=== PATIENT | female | born 2000 | race Caucasian/White ===

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

== ENCOUNTER → 2020-05-22 | Outpatient (CLI) | payer OTHER ==
[2020-05-22 11:26] LABS: Appearance,Urine Cloudy (Clear); Bilirubin,Urine Negative (Negative); Blood,Urine Negative (Negative); Color,Urine Yellow; Glucose,Urine (UA) Negative (Negative); Ketones,Urine Negative (Negative); Leukocyte Esterase,Urine Moderate (Negative); Mucus,Urine Moderate /hpf; Nitrite,Urine Negative (Negative); PH, Urine 6.5 (5.0-8.0); Protein,Urine Trace (Negative); RBC,Urine 2 /hpf (0-5); Specific Gravity,Urine 1.027 (1.001-1.035); Squamous Epithelial Cell,Urine 4 /hpf (0-4); WBC,Urine 3 /hpf (0-5)
[2020-05-22 15:05] LABS: HCT 35.1 % (37.2-46.3); HGB 11.8 g/dL (12.0-15.0); MCH 29.4 pg (27.0-32.0); MCHC 33.6 g/dL (32.0-37.0); MCV 87.3 fL (80.0-97.0); Mean Platelet Volume 9.2 fL (9.5-12.2); Platelet Count 221 X 10*3/uL (140-440); RBC 4.02 X 10*6/uL (4.10-5.20); RDW 12.2 % (11.5-14.5); WBC 6.81 X 10*3/uL (4.50-10.00)
[2020-05-22 22:34] LABS: HIV 2 AB Non-Reactive (Non-Reactive); HIV AB P24 Non-Reactive (Non-Reactive); HIV P24 AG Non-Reactive (Non-Reactive)
[2020-05-23 16:45] LABS: Hepatitis B Surface Antigen Non-Reactive (Non-Reactive)
== END | disposition home or self-care (01) ==
LOC: LABWHC1 10:20
PROVIDERS: ATTEND Physician Assistant
DX: Z34.01 Encounter for supervision of normal first pregnancy, first trimester (principal); Z3A.00 Weeks of gestation of pregnancy not specified
CPT/HCPCS: 36415; 81001; 85027; 86762; 86780; 86850; 86900; 86901; 87086; 87340; 87390

== ENCOUNTER 2020-11-15 18:27 | Outpatient (CLI) | payer OTHER ==
[2020-11-15 19:26] VITALS: BP 111/68; PULSE 72; RESP 18; TEMP 98.3
--- NOTE | 2020-12-19 12:22 | P.MSEPDOC ---
Presenting Problems - Arrival Data Date of Arrival on Unit: 11/15/20 Time of Arrival on Unit: 18:27 Mode of Transport: Ambulatory - Complaint OB-Reason for Admission/Chief Complaint: Rule Out SROM Comment: Pt presents to triage with c/o SROM around 1200 today Medical History - Information : 1 Para: 0 Term: 0 : 0 Abortions: Spontaneous or Elective: 0 Number of Living Children: 0 - Gestational Age Gestational Age by SARAH (wks/days): 37 Weeks and 0 Days Review of Systems - Review of Systems Constitutional: No problems Breast: No problems ENT: No problems Cardiovascular: No problems Respiratory: No problems Gastrointestinal: No problems Genitourinary: No problems Musculoskeletal: No problems Neurological: No problems Skin: No problems Vital Signs - Temperature Temperature: 98.3 F Temperature Source: Temporal Artery Scan - Pulse Pulse Oximetery Pulse Rate: 72 Pulse Assessment Method: Automatic Cuff - Respirations Respiratory Rate: 18 Oxygen Delivery Method: Room Air O2 Sat by Pulse Oximetry: 100 - Blood Pressure Right Arm Blood Pressure: 111/68 Blood Pressure Mean: 82 Blood Pressure Source: Automatic Cuff Medical Screen Scoring - Cervical Exam Dilation (cm): 2.5 Effacement (%): 80 Station: -1 Membranes: Intact - Uterine Contractions Frequency From (mins): 2 Frequency To (mins): 9 Duration From (seconds): 40 Duration To (seconds): 120 Intensity: Mild Resting: Soft to palpation - Assessment - Baby A Baseline FHR: 115 Heart Rate - NICHD Category: Category I (Normal) NST: Reactive Physician Notification - Physician Notified Physician Notified Date: 11/15/20 Physician Notified Time: 19:12 Physician: Chuckie Willingham New Order Received: Yes - Notification Comment Comment: Dr. Willingham notified by Malgorzata Garnica RN of pt's arrival and c/o possible SROM with some leaking since, amniosure negative, reactive NST, just discharge noted with cervical exam, 2.5/80/-2 orders to discharge home, pt has appt for the with Dr. Steward this week, reviewed s/s of labor with pt Maternal Triage Index - Maternal Triage Index Presenting for scheduled procedure w/no complaint: No - Stat/Priority 1 Stat Priority 1: No - Urgent/Priority 2 Urgent Priority 2: No - Prompt/Priority 3 Prompt Priority 3: No - Non-Urgent/Priority 4 Non-Urgent Priority 4: Yes Criteria Met for Priority 4: >37 weeks with early labor signs and c/o SROM/leaking Disposition - Disposition OB Disposition: Discharge to home Discharge Date: 11/15/20 Discharge Time: 19:15 I agree with the RN Medical Screening Exam: Yes Physician's MSE Comment: I have neither seen nor examined the patient. Case reviewed; plan agreed upon as documented in EMR&OBIX.: Yes Diagnosis: RELATED CONDITIONS, UNSPECIFIED, THIRD TRIMESTER
== END 2020-11-15 19:15 | disposition home or self-care (01) ==
LOC: FBPOP 18:27
PROVIDERS: ATTEND Obstetrics & Gynecology
DX: O26.93 Pregnancy related conditions, unspecified, third trimester (principal); Z3A.37 37 weeks gestation of pregnancy
CPT/HCPCS: 59025; 84112; G0463; 99213

== ENCOUNTER 2020-11-21 19:50 | Outpatient (CLI) | payer OTHER ==
[2020-11-21 21:26] VITALS: BP 117/74; PULSE 85; RESP 16; TEMP 96.3
--- NOTE | 2020-11-30 09:39 | P.MSEPDOC ---
Presenting Problems - Arrival Data Date of Arrival on Unit: 11/21/20 Time of Arrival on Unit: 19:50 Mode of Transport: Ambulatory - Complaint OB-Reason for Admission/Chief Complaint: Possible Onset of Labor Comment: Pt presents to triage with c/o contractions. Pt states she has been na for the last several weeks but that contractions increased in frequency and intensity today and are approx 5-6 minutes apart Medical History - Information : 1 Para: 0 Term: 0 : 0 Abortions: Spontaneous or Elective: 0 Number of Living Children: 0 - Gestational Age Gestational Age by SARAH (wks/days): 37 Weeks and 6 Days Review of Systems - Review of Systems Constitutional: No problems Breast: No problems ENT: No problems Cardiovascular: No problems Respiratory: No problems Gastrointestinal: No problems Genitourinary: No problems Musculoskeletal: No problems Neurological: No problems Skin: No problems Vital Signs - Temperature Temperature: 96.3 F Temperature Source: Temporal Artery Scan - Pulse Pulse Oximetery Pulse Rate: 85 Pulse Assessment Method: Automatic Cuff - Respirations Respiratory Rate: 16 Oxygen Delivery Method: Room Air O2 Sat by Pulse Oximetry: 98 - Blood Pressure Right Arm Blood Pressure: 117/74 Blood Pressure Mean: 88 Blood Pressure Source: Automatic Cuff Medical Screen Scoring - Cervical Exam Dilation (cm): 2 Effacement (%): 70 Station: -1 Membranes: Intact - Uterine Contractions Frequency From (mins): 3 Frequency To (mins): 5 Duration From (seconds): 40 Duration To (seconds): 100 Intensity: Mild Resting: Soft to palpation - Assessment - Baby A Baseline FHR: 1 Heart Rate - NICHD Category: Category I (Normal) NST: Reactive Physician Notification - Physician Notified Physician Notified Date: 11/21/20 Physician Notified Time: 20:40 Physician: Stephanie Steward New Order Received: Yes - Notification Comment Comment: Dr. Steward called dept for report on pt status. Update provided re: c/o contx. for the last several weeks which have increased in frequency and intensity today, SVE, status, contx pattern, vital signs, burning pain in lower abdomen and clean catch urine sample collected. Orders received to recheck cervix in 1 hour and d/c pt home if no cervical change has been made. Orders received to increase oral fluids over weekend, pelvic rest and keep scheduled appt with Dr. Steward on Saturday 11/25. Dr. Steward states. urinalysis does not need to be sent. Maternal Triage Index - Maternal Triage Index Presenting for scheduled procedure w/no complaint: No - Stat/Priority 1 Stat Priority 1: No - Urgent/Priority 2 Urgent Priority 2: No - Prompt/Priority 3 Prompt Priority 3: No - Non-Urgent/Priority 4 Non-Urgent Priority 4: Yes Criteria Met for Priority 4: >37 weeks with early labor signs Disposition - Disposition OB Disposition: Physician follow up in office, Discharge to home Discharge Date: 11/21/20 Discharge Time: 21:10 I agree with the RN Medical Screening Exam: Yes Case reviewed; plan agreed upon as documented in EMR&OBIX.: Yes Comments: Patient was neither seen nor examined by me Diagnosis: FALSE LABOR AT OR AFTER 37 COMPLETED WEEKS OF GESTATION
== END 2020-11-21 21:10 | disposition home or self-care (01) ==
LOC: FBPOP 19:50
PROVIDERS: ATTEND Obstetrics & Gynecology
DX: O47.1 False labor at or after 37 completed weeks of gestation (principal); Z3A.37 37 weeks gestation of pregnancy
CPT/HCPCS: 59025; G0463; 99213

== ENCOUNTER 2020-12-04 14:53 | Outpatient (CLI) | payer OTHER ==
[2020-12-04 16:36] VITALS: BP 127/72; PULSE 90; RESP 16; TEMP 97.9
--- NOTE | 2020-12-16 13:07 | P.MSEPDOC ---
Presenting Problems - Arrival Data Date of Arrival on Unit: 12/04/20 Time of Arrival on Unit: 15:00 Mode of Transport: Ambulatory - Complaint OB-Reason for Admission/Chief Complaint: Rule Out SROM Medical History - Information : 1 Para: 0 Term: 0 : 0 Abortions: Spontaneous or Elective: 0 Number of Living Children: 0 - Gestational Age Gestational Age by SARAH (wks/days): 39 Weeks and 5 Days Review of Systems - Review of Systems Constitutional: No problems Breast: No problems ENT: No problems Cardiovascular: No problems Respiratory: No problems Gastrointestinal: No problems Genitourinary: No problems Musculoskeletal: No problems Neurological: No problems Skin: No problems Vital Signs - Temperature Temperature: 97.9 F Temperature Source: Oral - Pulse Apical Pulse Rate: 90 Pulse Assessment Method: Automatic Cuff - Respirations Respiratory Rate: 16 Oxygen Delivery Method: Room Air O2 Sat by Pulse Oximetry: 100 - Blood Pressure Right Arm Blood Pressure: 127/72 Blood Pressure Mean: 90 Blood Pressure Source: Automatic Cuff Medical Screen Scoring - Cervical Exam Dilation (cm): 3 Effacement (%): 70 Station: -2 Membranes: Intact - Uterine Contractions Intensity: Mild - Assessment - Baby A Baseline FHR: 125 Heart Rate - NICHD Category: Category I (Normal) NST: Reactive Physician Notification - Physician Notified Physician Notified Date: 12/04/20 Physician Notified Time: 16:20 Physician: Stephanie Steward Order Received: Yes (discharge home with instructions) Maternal Triage Index - Maternal Triage Index Presenting for scheduled procedure w/no complaint: No - Stat/Priority 1 Stat Priority 1: No - Urgent/Priority 2 Urgent Priority 2: No - Prompt/Priority 3 Prompt Priority 3: No - Non-Urgent/Priority 4 Non-Urgent Priority 4: Yes Criteria Met for Priority 4: may discharge home after rechecking pt. amnisure neg. reactive nst. Disposition - Disposition OB Disposition: Physician follow up in office, Discharge to home, Written follow up instructions reviewed Discharge Date: 12/04/20 Discharge Time: 16:30 I agree with the RN Medical Screening Exam: Yes Case reviewed; plan agreed upon as documented in EMR&OBIX.: Yes Comments: Patient was neither seen nor examined by me Diagnosis: FALSE LABOR AT OR AFTER 37 COMPLETED WEEKS OF GESTATION
== END 2020-12-04 16:30 | disposition home or self-care (01) ==
LOC: FBPOP 14:53
PROVIDERS: ATTEND Obstetrics & Gynecology
DX: O47.1 False labor at or after 37 completed weeks of gestation (principal); Z3A.39 39 weeks gestation of pregnancy
CPT/HCPCS: 59025; 84112; G0463; 99213

== ENCOUNTER 2020-12-05 21:13 | Inpatient (IN) | payer OTHER ==
[2020-12-05] MEDS ORDERED: OXYTOCIN 10 UNIT/ML 1 ML VIAL IM PRN (21:48)
[2020-12-05] MEDS ORDERED: LIDOCAINE 0.5% (PF) 5 MG/ML (50 ML SDV) SQ PRN (21:48)
[2020-12-05] MEDS ORDERED: TERBUTALINE 1 MG/ML VIAL SQ PRN (21:48)
[2020-12-05] MEDS ORDERED: METHYLERGONOVINE 0.2 MG/ML 1 ML AMP IM PRN (21:48)
[2020-12-05] MEDS ORDERED: CARBOPROST TROMETHAMINE 250 MCG/ML 1 ML AMP IM PRN (21:48)
[2020-12-05] MEDS ORDERED: PENICILLIN G POTASSIUM 5,000,000 UNIT in DEXTROSE 5% IN WATER 100 ML IVPB ONE ×2 (22:00)
[2020-12-05] MEDS: LACTATED RINGERS 1,000 ML IV SCH (23:04)
[2020-12-05 23:10] LABS: Basophils % (A) 0 %; Eosinophils # (A) 0.1 k/uL (0-0.7); Eosinophils % (A) 1 %; HCT 33.6 % (34.0-46.0); HGB 11.4 gm/dL (11.4-16.0); Lymphocytes # (A) 1.5 k/uL (1.0-4.8); Lymphocytes % (A) 16 %; MCH 29.3 pg (25.0-35.0); MCHC 33.8 g/dL (31.0-37.0); MCV 86.9 fL (80.0-100.0); Mean Platelet Volume 7.8; Monocytes # (A) 0.5 k/uL (0-1.0); Monocytes % (A) 5 %; Neutrophils # (A) 7.1 k/uL (1.3-7.7); Neutrophils % (A) 76 %; Platelet Count 245 k/uL (150-450); RBC 3.87 m/uL (3.80-5.40); RDW 13.6 % (11.5-15.5); WBC 9.4 k/uL (3.8-10.6)
[2020-12-06] MEDS ORDERED: PENICILLIN G POTASSIUM 2,500,000 UNIT in DEXTROSE 5% IN WATER 100 ML IVPB SCH ×2 (04:00)
[2020-12-06] MEDS ORDERED: OXYTOCIN 30 UNITS/500 ML NS 30 UNIT in SALINE 1 500ML.BAG IV SCH (06:00)
[2020-12-06] MEDS: LACTATED RINGERS 1,000 ML IV SCH ×2 (06:54→10:38)
[2020-12-06] MEDS: PENICILLIN G POTASSIUM 2,500,000 UNIT in DEXTROSE 5% IN WATER 100 ML IVPB SCH ×4 (06:57→11:03)
--- NOTE | 2020-12-06 08:48 | P.HPOB ---
History of Present Illness H&P Date: 12/06/20 Chief Complaint: My water broke last night This is a 20-year-old white female 1 para 0 EDC 12/12/2020 at 40 weeks gestation who presented with spontaneous amniorrhexis yesterday. This was verified by testing at the bedside. She was admitted last night, penicillin G prophylaxis started. Past medical history is significant for anxiety and depression. Past surgical history is negative. Current medications vitamins daily. ALLERGIES none known. Family history significant for heart disease, dementia, diabetes. Social history patient is , is present at the bedside. She is currently unemployed. She denies tobacco alcohol or drug use. history is significant for blood type A positive, rubella status immune. Urine culture, hepatitis B surface antigen, HIV testing, gonorrhea and chlamydia cultures, group B strep cultures all negative. One-hour Glucola 74. On exam patient is 5 foot 10 inches, 175 pounds, blood pressure 125/73. Vital signs are stable and she is afebrile. General physical exam is within normal limits. Cervix is 6 cm dilated, 90% effaced, -1 station, vertex presentation. heart rate is consistent with reactive NST. Uterine contractions are occurring approximately every 3-5 minutes apart, of mild to moderate intensity. She is declining the option for pain medication. Impression: 40 week intrauterine . Early labor. All signs currently reassuring. Plan: Continue close maternal and surveillance. Continue oxytocin per hospital protocol. Continue penicillin G prophylaxis per protocol. Anticipate normal spontaneous vaginal delivery. Review of Systems Constitutional: Reports as per HPI Past Medical History Past Medical History: No Reported History History of Any Multi-Drug Resistant Organisms: None Reported Past Surgical History: No Surgical Hx Reported Past Anesthesia/Blood Transfusion Reactions: No Reported Reaction Past Psychological History: No Psychological Hx Reported Smoking Status: Never smoker Past Alcohol Use History: None Reported Past Drug Use History: None Reported - Past Family History Father Family Medical History: No Reported History Mother Family Medical History: No Reported History Medications and Allergies Home Medications Medication Instructions Recorded Confirmed Type Pnv No.95/Ferrous Fum/Folic AC 1 each PO DAILY 11/15/20 12/05/20 History [ Multivitamin Tablet] Allergies Allergy/AdvReac Type Severity Reaction Status Date / Time No Known Allergies Allergy Verified 12/05/20 21:21 Exam Vital Signs Temp Pulse Resp BP Pulse Ox 12/05/20 23:30 97.0 F L 75 18 125/73 99 Intake and Output 12/05/20 12/06/20 12/06/20 22:59 06:59 14:59 Other: # Voids 1 2 Weight 79.379 kg 79.379 kg See dictation under HPI please Results Result Diagrams: 12/05/20 22:25 Abnormal Lab Results - Last 24 Hours (Table) 12/05/20 Range/Units 22:25 Hct 33.6 L (34.0-46.0) % Assessment and Plan Assessment: 40 week intrauterine , early active labor. All signs reassuring. Plan: Continue penicillin G prophylaxis for history of spontaneous amniorrhexis last night. Continue oxytocin per hospital protocol. Continue close maternal and surveillance. Analgesic options reviewed with the patient, currently declined. Anticipate normal spontaneous vaginal delivery. Time with Patient: Less than 30
[2020-12-06] MEDS ORDERED: BUTORPHANOL 1 MG/ML 1 ML VIAL IV PRN (09:00)
[2020-12-06] MEDS ORDERED: SODIUM CHLORIDE 0.9% 100 ML BAG ONE (10:14)
[2020-12-06] MEDS ORDERED: ROPIVACAINE 5MG/ML 20ML VIAL ONE (10:14)
[2020-12-06] MEDS ORDERED: fentaNYL (PF) 50 MCG/ML 5 ML AMP ONE (10:14)
[2020-12-06] MEDS ORDERED: diphenhydrAMINE 50 MG CAP PO PRN (13:15)
[2020-12-06] MEDS ORDERED: ACETAMINOPHEN TAB 325 MG TAB PO PRN (13:15)
[2020-12-06] MEDS ORDERED: ZOLPIDEM 5 MG TAB PO PRN (13:15)
[2020-12-06] MEDS ORDERED: HYDROCORTISONE 2.5% RECTAL CREAM 30 GM TUBE RECTAL PRN (13:15)
[2020-12-06] MEDS ORDERED: LANOLIN CREAM 5 GM TUBE TOPICAL PRN (13:15)
[2020-12-06] MEDS ORDERED: SIMETHICONE 80 MG CHEWABLE PO PRN (13:15)
[2020-12-06] MEDS ORDERED: BENZOCAINE/MENTHOL SPRAY 1 GM/SPRAY AEROSOL TOPICAL PRN (13:15)
[2020-12-06] MEDS ORDERED: diphenhydrAMINE 50 MG/ML 1 ML VIAL IVP PRN ×2 (13:15)
[2020-12-06] MEDS ORDERED: diphenhydrAMINE ELIXIR 25 MG/10 ML CUP PO PRN (13:15)
[2020-12-06] MEDS ORDERED: diphenhydrAMINE 25 MG CAP PO PRN (13:15)
--- NOTE | 2020-12-06 13:15 | P.PROBDLV ---
Vaginal Delivery Note - . Vaginal Delivery Note: This is a 20-year-old female 1 para 0 EDC 12/06/2020 at 40 weeks gestation. Patient presented last night with spontaneous amniorrhexis which occurred at home, clear fluid. [place] strep cultures were negative. She was treated with penicillin G and received 4 or 5 doses through the course of labor. Oxytocin was started this morning and titrated as per protocol. Epidural was placed per her request. heart tones were reassuring throughout first and second stages of labor. Patient became completely dilated at 1240 hrs. and began the second stage of labor at that time. She pushed quite successfully in the dorsal lithotomy position. Perineal body was prepped and draped in usual sterile fashion. Infant's head delivered aspirin anterior and he restituted accordingly at 1251 hrs. There was a nuchal cord 1 that was reduced. The left or anterior shoulder was delivered from underneath the pubic symphysis at which time the oropharynx, nasopharynx, and external nares were bulb suctioned on the perineal body. Patient was officially delivered of a liveborn male at 1252 hrs. Umbilical cord was doubly clamped and ligated, he was handed to waiting nurses for evaluation where scores of 8 and 9 at one and 5 minutes respectively were given. The placenta delivered spontaneously, but active management, at 1254 hrs. It was inspected and noted to be intact with trivascular cord. There was no unusual odor noted. At this time inspection of the cervix, vagina, perineum, periurethral, and perirectal areas was performed. There was a small first- degree perineal laceration easily repaired in the usual fashion using repeat suture. Uterus is massaged. Total estimated blood loss 250 mL's. Patient is requesting circumcision for her son. He weighs 3715 g or 8 lbs. 3 oz.
[2020-12-06] MEDS: IBUPROFEN 600 MG TAB PO PRN ×2 (14:28→19:28)
[2020-12-07 05:59] VITALS: TEMP 98.2
[2020-12-07 08:05] VITALS: BP 110/76; PULSE 91; RESP 14
[2020-12-07] MEDS: IBUPROFEN 600 MG TAB PO PRN (08:10)
--- NOTE | 2020-12-07 09:00 | P.DS ---
Providers Date of admission: 12/05/20 21:50 Expected date of discharge: 12/07/20 Attending physician: Stephanie Steward Primary care physician: Stated None - Discharge Diagnosis(es) (1) Term Current Visit: Yes Status: Acute (2) SROM (spontaneous rupture of membranes) Current Visit: Yes Status: Acute (3) Status post vaginal delivery Current Visit: Yes Status: Acute (4) Obstetric vaginal laceration with first degree perineal laceration Current Visit: Yes Status: Acute Hospital Course: This is a 20-year-old G1 now P1 status post normal spontaneous vaginal delivery. Patient receiving routine care without complication. Patient was admitted to labor and delivery on 12/05 with complaints of spontaneous rupture of membranes at home clear in nature. Patient was admitted group beta strep cultures were negative, antibiotics were begun secondary to length of time since rupture of membranes. Patient did progress through labor eventually requesting epidural for pain control. heart tones were noted to be reassuring throughout the labor process. Patient progressed to complete began pushing and had a normal spontaneous vaginal delivery of a viable male infant at 1252 on 12/06. Patient is doing well . is currently being transferred to [facility]. Senior Facilities Manager is in to speak with the parents. Patient is ambulating and voiding without difficulty. She is tolerating a regular diet without nausea or vomiting. She states her pain is well-controlled. Her lochia is moderate. She is breast-feeding and is requesting a breast pump prescription. Patient Condition at Discharge: Good Plan - Discharge Summary New Discharge Prescriptions: No Action Pnv No.95/Ferrous Fum/Folic AC [ Multivitamin Tablet] 1 each PO DAILY Discharge Medication List Pnv No.95/Ferrous Fum/Folic AC [ Multivitamin Tablet] 1 each PO DAILY 11/15/20 [History] Follow up Appointment(s)/Referral(s): Stephanie Steward MD [STAFF PHYSICIAN] - 6 Weeks Patient Instructions/Handouts: Vaginal Delivery (GEN), Vaginal Delivery (DC) Discharge Disposition: HOME SELF-CARE
[2020-12-07] MEDS: SENNOSIDES-DOCUSATE SODIUM 1 EACH TAB PO SCH ×2 (09:18→09:20)
== END 2020-12-07 12:45 | disposition home or self-care (01) | DRG 807 ==
LOC: FBPOP 21:13 → 4FBP 21:50
PROVIDERS: ADMIT Obstetrics & Gynecology; ATTEND Obstetrics & Gynecology
PROC: 10E0XZZ Delivery of Products of Conception, External Approach (ICD-10-PCS; principal; 2020-12-06)
PROC: 0HQ9XZZ Repair Perineum Skin, External Approach (ICD-10-PCS; 2020-12-06)
DX: O69.81X0 Labor and delivery complicated by cord around neck, without compression, not applicable or unspecified (principal); Z37.0 Single live birth; O70.0 First degree perineal laceration during delivery; Z3A.40 40 weeks gestation of pregnancy; Z56.0 Unemployment, unspecified; Z83.3 Family history of diabetes mellitus
CPT/HCPCS: 59025; 84112; 85025; 86850; 86900; 86901; 99213

== ENCOUNTER 2022-02-25 18:30 | Observation (INO) | payer OTHER ==
[2022-02-25 19:16] VITALS: RESP 16
[2022-02-25 20:02] LABS: Basophils % (A) 1 %; Eosinophils # (A) 0.1 k/uL (0-0.7); Eosinophils % (A) 2 %; HCT 38.1 % (34.0-46.0); HGB 13.2 gm/dL (11.4-16.0); Lymphocytes # (A) 1.9 k/uL (1.0-4.8); Lymphocytes % (A) 36 %; MCH 29.9 pg (25.0-35.0); MCHC 34.7 g/dL (31.0-37.0); Mean Platelet Volume 7.5; Monocytes # (A) 0.3 k/uL (0-1.0); Monocytes % (A) 6 %; Neutrophils # (A) 2.7 k/uL (1.3-7.7); Neutrophils % (A) 53 %; Platelet Count 222 k/uL (150-450); RBC 4.43 m/uL (3.80-5.40); RDW 12.4 % (11.5-15.5); WBC 5.2 k/uL (3.8-10.6)
[2022-02-25 20:32] LABS: Appearance,Urine Clear (Clear); Bilirubin,Urine Negative (Negative); Blood,Urine Negative (Negative); Color,Urine Light Yellow; Glucose,Urine (UA) Negative (Negative); Ketones,Urine Negative (Negative); Leukocyte Esterase,Urine Negative (Negative); Nitrite,Urine Negative (Negative); PH, Urine 7.5 (5.0-8.0); Protein,Urine Negative (Negative); Specific Gravity,Urine 1.019 (1.001-1.035); Urobilinogen,Urine <2.0 mg/dL (<2.0)
[2022-02-25 20:34] LABS: ALT 13 U/L (4-34); AST 17 U/L (14-36); African American GFR (CKD) >90 (>60 ml/min/1.73 sqM); Albumin 4.6 g/dL (3.5-5.0); Alcohol <10 mg/dL; Alkaline Phosphatase 45 U/L (38-126); Anion Gap 8 mmol/L; Blood Urea Nitrogen 14 mg/dL (7-17); Calcium 8.8 mg/dL (8.4-10.2); Carbon Dioxide 24 mmol/L (22-30); Chloride 106 mmol/L (98-107); Glucose 98 mg/dL (74-99); Lipase 216 U/L (23-300); Magnesium 1.9 mg/dL (1.6-2.3); Non-African American GFR(CKD) >90 (>60 ml/min/1.73 sqM); Potassium 4.1 mmol/L (3.5-5.1); Sodium 138 mmol/L (137-145); Total Bilirubin 0.4 mg/dL (0.2-1.3); Total Protein 7.1 g/dL (6.3-8.2)
--- NOTE | 2022-02-25 21:11 | XR ---
EXAMINATION TYPE: XR chest 2V DATE OF EXAM: 02/25/2022 COMPARISON: 09/06/2017 HISTORY: Numbness TECHNIQUE: FINDINGS: Heart and mediastinum are normal. Lungs are clear. Diaphragm is normal. Bony thorax appears normal. IMPRESSION: Normal chest. No change.
--- NOTE | 2022-02-25 21:17 | ED ---
General Adult HPI - General Chief complaint: Neuro Symptoms/Deficit Stated complaint: R. Sided Numbness Time Seen by Provider: 02/25/22 19:18 Source: patient Mode of arrival: ambulatory Limitations: no limitations - History of Present Illness Initial comments: This is a 21-year-old female with a past medical history presents emergency department for right hand and arm intermittent numbness. The patient stated that approximately 10:30 this morning she was at a store when she went to reach for something and had a sharp pain in the medial aspect of her right hand that shot of her arm which then cause numbness in the upper extremity. The patient then reported intermittent numbness in the right side of the face as well as tingling in the right toes. The patient also stated that she had some sharp pinpoint pain on the right side of the head as well as then the left side of the head later throughout the day. The patient did not note any slurring, dysphagia or facial droop. The patient was able to ambulate throughout the emergency department and did wait approximately 8 hours prior to arrival for evaluation. The patient on evaluation stated that she continued subjective numbness to the right upper extremity as well as the right side of the face. The patient denied any acute pain however and denied any trauma. The patient denied any li ghtheadedness or dizziness. The patient does have a history of migraines in which she sees spots and has pain posterior to her orbits. The patient stated that this was different than her previous migraines. The patient denied any other acute pain or complaints at this time. - Related Data Home Medications Medication Instructions Recorded Confirmed Pnv No.95/Ferrous Fum/Folic AC 1 each PO DAILY 11/15/20 12/05/20 [ Multivitamin Tablet] Allergies Allergy/AdvReac Type Severity Reaction Status Date / Time No Known Allergies Allergy Verified 02/25/22 19:16 Review of Systems ROS Statement: Those systems with pertinent positive or pertinent negative responses have been documented in the HPI. ROS Other: All systems not noted in ROS Statement are negative. Past Medical History Past Medical History: No Reported History History of Any Multi-Drug Resistant Organisms: None Reported Past Surgical History: No Surgical Hx Reported Past Anesthesia/Blood Transfusion Reactions: No Reported Reaction Past Psychological History: Anxiety, Depression Smoking Status: Never smoker Past Alcohol Use History: Rare Past Drug Use History: None Reported - Past Family History Father Family Medical History: No Reported History Mother Family Medical History: No Reported History General Exam Limitations: no limitations General appearance: alert, in no apparent distress Head exam: Present: atraumatic, normocephalic Eye exam: Present: normal appearance, PERRL Pupils: Present: normal accommodation ENT exam: Present: normal exam, normal oropharynx, mucous membranes moist Neck exam: Present: normal inspection, full ROM Respiratory exam: Present: normal lung sounds bilaterally Cardiovascular Exam: Present: regular rate, normal rhythm, normal heart sounds GI/Abdominal exam: Present: soft, normal bowel sounds Extremities exam: Present: normal inspection, full ROM Back exam: Present: normal inspection, full ROM Neurological exam: Present: alert, oriented X3, CN II-XII intact, other (Subjective numbness of the right upper extremity as well as the right side of the face) Psychiatric exam: Present: normal affect, normal mood Skin exam: Present: warm, dry Course Vital Signs 02/25/22 19:12 Temperature 98.0 F Pulse Rate 68 Respiratory 16 Rate Blood Pressure 107/70 O2 Sat by Pulse 98 Oximetry EKG Findings - EKG Comments: EKG Findings:: An EKG was obtained and was read by myself. EKG showed a rate of 60, UT interval 166, QRS duration of 88 and QTC of 418. This EKG showed a normal sinus rhythm with no ST segment elevations or depressions noted. There were no old EKGs to compare to at this time. Medical Decision Making - Medical Decision Making The patient was seen and evaluated in the emergency department. Physical exam, the patient was resting in bed without any acute distress. Vital signs admission were stable and within normal limits. Due to the nature the patient's complaints in the setting of continued intermittent subjective numbness in the right upper extremity and right face, CT head as well as a CTA head and neck was obtained in addition to laboratory workup. All laboratory workup was within normal limits and both the CT head and CT of the head and neck were negative for any intracranial pathology. The patient stated that her symptoms were still improving however still had intermittent subjective numbness. Due to these findings, an MRI of the brain with and without contrast was ordered and the patient did agree to being placed in observation. The patient's primary care physician, Dr. Irwin is covered by [facility] for observation and Dr. Iglesias was contacted and accepted the admission to observation at 2133. The patient was agreeable to this and was placed observation stable condition. - Lab Data Result diagrams: 02/25/22 19:54 02/25/22 19:54 Lab Results 02/25/22 02/25/22 02/25/22 Range/Units 19:54 19:54 19:54 WBC 5.2 (3.8-10.6) k/uL RBC 4.43 (3.80-5.40) m/uL Hgb 13.2 (11.4-16.0) gm/dL Hct 38.1 (34.0-46.0) % MCV 86.0 (80.0-100.0) fL MCH 29.9 (25.0-35.0) pg MCHC 34.7 (31.0-37.0) g/dL RDW 12.4 (11.5-15.5) % Plt Count 222 (150-450) k/uL MPV 7.5 Neutrophils % 53 % Lymphocytes % 36 % Monocytes % 6 % Eosinophils % 2 % Basophils % 1 % Neutrophils # 2.7 (1.3-7.7) k/uL Lymphocytes # 1.9 (1.0-4.8) k/uL Monocytes # 0.3 (0-1.0) k/uL Eosinophils # 0.1 (0-0.7) k/uL Basophils # 0.0 (0-0.2) k/uL Sodium 138 (137-145) mmol/L Potassium 4.1 (3.5-5.1) mmol/L Chloride 106 (98-107) mmol/L Carbon Dioxide 24 (22-30) mmol/L Anion Gap 8 mmol/L BUN 14 (7-17) mg/dL Creatinine 0.73 (0.52-1.04) mg/dL Est GFR (CKD-EPI)AfAm >90 (>60 ml/min/1.73 sqM) Est GFR (CKD-EPI)NonAf >90 (>60 ml/min/1.73 sqM) Glucose 98 (74-99) mg/dL Calcium 8.8 (8.4-10.2) mg/dL Magnesium 1.9 (1.6-2.3) mg/dL Total Bilirubin 0.4 (0.2-1.3) mg/dL AST 17 (14-36) U/L ALT 13 (4-34) U/L Alkaline Phosphatase 45 (38-126) U/L Troponin I <0.012 (0.000-0.034) ng/mL Total Protein 7.1 (6.3-8.2) g/dL Albumin 4.6 (3.5-5.0) g/dL Lipase 216 (23-300) U/L Urine Color Urine Appearance (Clear) Urine pH (5.0-8.0) Ur Specific [place] (1.001-1.035) Urine Protein (Negative) Urine Glucose (UA) (Negative) Urine Ketones (Negative) Urine Blood (Negative) Urine Nitrite (Negative) Urine Bilirubin (Negative) Urine Urobilinogen (<2.0) mg/dL Ur Leukocyte Esterase (Negative) Urine HCG, Qual (Not Detectd) Serum Alcohol <10 mg/dL 02/25/22 02/25/22 Range/Units 19:58 19:58 WBC (3.8-10.6) k/uL RBC (3.80-5.40) m/uL Hgb (11.4-16.0) gm/dL Hct (34.0-46.0) % MCV (80.0-100.0) fL MCH (25.0-35.0) pg MCHC (31.0-37.0) g/dL RDW (11.5-15.5) % Plt Count (150-450) k/uL MPV Neutrophils % % Lymphocytes % % Monocytes % % Eosinophils % % Basophils % % Neutrophils # (1.3-7.7) k/uL Lymphocytes # (1.0-4.8) k/uL Monocytes # (0-1.0) k/uL Eosinophils # (0-0.7) k/uL Basophils # (0-0.2) k/uL Sodium (137-145) mmol/L Potassium (3.5-5.1) mmol/L Chloride (98-107) mmol/L Carbon Dioxide (22-30) mmol/L Anion Gap mmol/L BUN (7-17) mg/dL Creatinine (0.52-1.04) mg/dL Est GFR (CKD-EPI)AfAm (>60 ml/min/1.73 sqM) Est GFR (CKD-EPI)NonAf (>60 ml/min/1.73 sqM) Glucose (74-99) mg/dL Calcium (8.4-10.2) mg/dL Magnesium (1.6-2.3) mg/dL Total Bilirubin (0.2-1.3) mg/dL AST (14-36) U/L ALT (4-34) U/L Alkaline Phosphatase (38-126) U/L Troponin I (0.000-0.034) ng/mL Total Protein (6.3-8.2) g/dL Albumin (3.5-5.0) g/dL Lipase (23-300) U/L Urine Color Light Yellow Urine Appearance Clear (Clear) Urine pH 7.5 (5.0-8.0) Ur Specific [place] 1.019 (1.001-1.035) Urine Protein Negative (Negative) Urine Glucose (UA) Negative (Negative) Urine Ketones Negative (Negative) Urine Blood Negative (Negative) Urine Nitrite Negative (Negative) Urine Bilirubin Negative (Negative) Urine Urobilinogen <2.0 (<2.0) mg/dL Ur Leukocyte Esterase Negative (Negative) Urine HCG, Qual Not Detected (Not Detectd) Serum Alcohol mg/dL Critical Care Time Critical Care Time: Yes Total Critical Care Time: 31 Disposition Clinical Impression: Transient cerebral ischemia, Right sided numbness Disposition: ADMITTED IP TO THIS [facility] Condition: Stable Is patient prescribed a controlled substance at d/c from ED?: No Referrals: Noemy Irwin MD [Primary Care Provider] - 1-2 days Time of Disposition: 21:33 Decision to Admit Reason: Admit from EC Decision Date: 02/25/22 Decision Time: 21:33
--- NOTE | 2022-02-25 21:20 | CT ---
EXAMINATION TYPE: CT angio head neck DATE OF EXAM: 02/25/2022 COMPARISON: None HISTORY: right side numbness CT DLP: 1546.1 mGycm Automated exposure control for dose reduction was used. CONTRAST: Performed with IV Contrast, patient injected with 65 mL of Isovue 370. Images obtained from the aortic arch to the vertex of the brain with the IV contrast. There is normal branching pattern of the great vessels on the aortic arch. There is bilateral arteria l flow in the subclavian arteries. There is arterial flow in the common internal and external carotid arteries bilaterally. There is wide patency of the carotid artery bifurcations. The vertebral arteri es appear normal. There is arterial flow in the vertebral basilar artery system. No evidence of carot id or vertebral artery aneurysm or dissection. There is arterial flow in the anterior middle and posterior cerebral arteries bilaterally. No mass ef fect. No evidence of intracranial aneurysm or neovascularity. No evidence of intracranial arterial st enosis. There is normal enhancement of the venous sinuses. IMPRESSION: Normal CT angiogram of the brain. Normal CT angiogram of the neck.
--- NOTE | 2022-02-25 21:22 | CT ---
EXAMINATION TYPE: CT brain wo con DATE OF EXAM: 02/25/2022 COMPARISON: HISTORY: right side numbness CT DLP: 1546.1 mGycm Automated exposure control for dose reduction was used. Images of the brain obtained with no contrast. Ventricles have normal size. There is no mass effect or midline shift. No sign of intracranial hemorr janis. Calvarium is intact. There is normal aeration of the mastoid sinuses. IMPRESSION: Negative CT scan of the brain.
[2022-02-25] MEDS ORDERED: NALOXONE 0.4 MG/ML 1 ML VIAL IV PRN (21:32)
--- NOTE | 2022-02-26 03:59 | P.HPIM ---
History of Present Illness H&P Date: 02/25/22 Chief Complaint: right upper extremity numbness 21 year old female with migraine patient comes in for evaluation of sudden onset right upper extremity numbness , and spasm in the right hand . this happened earlier this morning when she was at a store shopping ,while reaching out to a clothing item , she noticed spasm in her right hand ,and then numbness over the hand . in the ED she noted right facial numbness , but during my interview she denied, but reported some changes in her field of vision of the right eye, that since then has resolved. she denies any trauma or fall, . she denies any difficulty in walking , denies any headache. she recalls similar episodes associated with migraine headaches, sometimes followed by left Upper extremity weakness and numbness. workup in the ED, blood work unremarkable imaging CT brain and CTA head and neck , no acute pathology at time of interview , patient symptoms resolved Review of Systems Pertinent positives as noted in HPI. All other systems were reviewed and are negative Past Medical History Past Medical History: No Reported History History of Any Multi-Drug Resistant Organisms: None Reported Past Surgical History: No Surgical Hx Reported Past Anesthesia/Blood Transfusion Reactions: No Reported Reaction Past Psychological History: Anxiety, Depression Smoking Status: Never smoker Past Alcohol Use History: Rare Past Drug Use History: None Reported - Past Family History Father Family Medical History: No Reported History Mother Family Medical History: No Reported History Additional Family Medical History / Comment(s): grandma with pacemaker Medications and Allergies Home Medications Medication Instructions Recorded Confirmed Type Ibuprofen [Motrin] 800 mg PO Q8H PRN 02/25/22 02/25/22 History Lisdexamfetamine Dimesylate 20 mg PO DAILY 02/25/22 02/25/22 History [Vyvanse] Allergies Allergy/AdvReac Type Severity Reaction Status Date / Time No Known Allergies Allergy Verified 02/25/22 22:08 Physical Exam Vitals: Vital Signs Temp Pulse Resp BP Pulse Ox 02/25/22 19:12 98.0 F 68 16 107/70 98 Intake and Output 02/25/22 02/25/22 02/25/22 06:59 14:59 22:59 Other: Weight 68.039 kg Constitutional: No acute distress, conversant, pleasant Eyes: Anicteric sclerae, moist conjunctiva, Pupils equal round reactive to light ENMT: NC/AT Oropharynx clear, no erythema, or exudates Neck: Supple, no masses, or JVD No carotid bruits No thyromegaly Lungs: Clear to auscultation Clear to percussion Normal respiratory effort, no accessory muscle use Cardiovascular: Heart regular in rate and rhythm, No murmurs, gallops, or rubs No peripheral edema Abdominal: Soft Nontender, no guarding, rebound or rigidity Abdomen moving with respiration Normoactive bowel sounds No hepatomegaly, No splenomegaly No palpable mass No abdominal wall hernia noted Skin: Normal temperature, tone, texture, turgor No induration No subcutaneous nodules No rash, lesions No ulcers Extremities: No digital cyanosis No clubbing Pedal pulses intact and symmetrical Radial pulses intact and symmetrical No calf tenderness Psychiatric: Alert and oriented to person, place and time Appropriate affect fair judgement Neuro Muscles Strength 5/5 in all 4 extremities Sensation to light touch grossly present throughout Cranial nerves II-XII grossly intact No focal sensory deficits finger nose exam intact bilaterally Lymphatics: no palpable cervical or supraclavicular , lymph nodes Results CBC & Chem 7: 02/25/22 19:54 02/25/22 19:54 Assessment and Plan Assessment: right upper extremity numbness and ? right facial numbness, and right visual field defect , resolved, rule out TIA neuro checks neuro eval monitor vital signs ASA check lipid panel check a1c MRI head in AM full code DVT PPX scds
[2022-02-26 08:33] VITALS: BP 96/60; PULSE 73; TEMP 98
[2022-02-26] MEDS ORDERED: ASPIRIN 81 MG PO SCH (09:00)
[2022-02-26 11:06] LABS: Chol/HDL Ratio 2.75 Ratio; LDL Cholesterol,Calculated 67.2 mg/dL (0.0-131.0); VLDL Calculation 10.98 mg/dL (5.00-40.00)
--- NOTE | 2022-02-26 12:00 | MR ---
EXAMINATION TYPE: MR brain wo/w con DATE OF EXAM: 02/26/2022 COMPARISON: None HISTORY: Intermittent right-sided numbness TECHNIQUE: Multiplanar, multisequence images of the brain and brainstem is performed without and with IV contras t, utilizing 7 mL intravenous Gadavist . FINDINGS: On the T1-weighted sagittal images, the midline structures including the craniovertebral junction rel ationships are normal. The ventricles, basal cisterns and sulci over the convexities are within normal limits and there is n o mass effect or shift of midline structures. No abnormal signal intensity is seen throughout the brain parenchyma. Based on diffusion-weighted im aging, there is no diffusion restriction or acute ischemic event. Following contrast administration, there is no pathological enhancement. The posterior fossa including the brainstem, fourth ventricle and cerebellar pontine angles appear no rmal. Intraorbital contents appear normal and symmetric. Visualized paranasal sinuses and mastoid air cells are well aerated. IMPRESSION: No significant abnormality seen.
[2022-02-26] MEDS ORDERED: BUTALB/APAP/CAFF 50-325-40MG TAB PO PRN (12:33)
[2022-02-26] MEDS ORDERED: PROPRANOLOL 20 MG TAB PO SCH (12:45)
--- NOTE | 2022-02-26 12:52 | P.CNNES ---
History of Present Illness Consult date: 02/26/22 Requesting physician: Chi Valero Reason for Consult: Right-sided numbness History of Present Illness: Patient is a 21-year-old female with history of migraine headaches with aura, and ADD, came to the hospital yesterday at 6:30 PM atypical migraine. Yesterday patient was with her mother, at the mall, when she was grabbing something and suddenly she felt numbness of the right hand, that extended to the right arm, then affected the right perioral region and around the right eye. She felt nauseous. She felt shooting pain in her right side of her head. Also felt some pressure in the left side of her head. She also lost peripheral vision in the right eye. Patient states that the neurological symptoms were quite intense or 30 minutes and then improved, but she still has some pins and needles sensation like a band involving the distal right forearm region with numbness and tingling in the right little finger and medial palm region. She still has some loss of peripheral vision on the right eye. Patient states that her migraines always affected the left side but this is the first time it happened the right side. Vital signs on arrival blood pressure 107/70, pulse rate 60 temperature 98.0. Blood test shows normal CBC, CMP, troponin, UA. Blood alcohol level is negative. CT head and chest x-ray are normal. Patient takes Vyvanse 20 mg daily and ibuprofen. Patient does not see a neurologist. Patient has history of migraine with aura for last 6 years, occurs about once a month, although lately has been occurring once every few months. The migraine aura always involves the left side of the body. Starts with numbness and tingling of the left hand, then slowly extends to involve the entire left arm to the shoulder, sometimes involve the left anterior chest region and sometimes extends to the left leg. Patient develops blind spots and then loses peripheral vision on the left side. She gets photophobic, phonophobic with nausea vomiting. Patient then gets a headache, which usually lasts a day and she sleeps it off, and is gone by the next morning. The headache sometimes could be 8-9/10, sometimes are not as severe 4-5/10. However she is photosensitive and nauseous, with visual disturbance on the left and left arm numbness, that lasts for for another 1-2 days. Patient states that her migraine yesterday was unusually yesterday, as it involved the right side and was more faster progression as her usual migraine. She still has some headache 5/10 on the right side. She drinks coffee very occasionally. Denies any marijuana. Does not smoke or drink. She has family history of migraines. Her dad was adopted. Review of Systems Constitutional: Denies chills, Denies fever Eyes: right loss of peripheral vision, denies diplopia Ears: deny: decreased hearing, earache Ears, nose, mouth and throat: Reports headache, Denies sore throat Cardiovascular: Denies chest pain, Denies shortness of breath Respiratory: Denies cough Gastrointestinal: Denies abdominal pain, Denies diarrhea, Denies nausea, Denies vomiting Genitourinary: Denies dysuria, Denies hematuria Musculoskeletal: Reports arm numbness/tingling Integumentary: Denies pruritus, Denies rash Neurological: Reports as per HPI Psychiatric: Denies anxiety, Denies depression Endocrine: Denies fatigue, Denies weight change Past Medical History Past Medical History: No Reported History Additional Past Medical History / Comment(s): Migraines, ADHD History of Any Multi-Drug Resistant Organisms: None Reported Past Surgical History: No Surgical Hx Reported Past Anesthesia/Blood Transfusion Reactions: No Reported Reaction Past Psychological History: Anxiety, Depression Smoking Status: Never smoker Past Alcohol Use History: Rare Past Drug Use History: None Reported - Past Family History Father Family Medical History: No Reported History Mother Family Medical History: No Reported History Additional Family Medical History / Comment(s): grandma with pacemaker Medications and Allergies Home Medications Medication Instructions Recorded Confirmed Type Lisdexamfetamine Dimesylate 20 mg PO DAILY 02/25/22 02/25/22 History [Vyvanse] Aspirin 81 mg PO DAILY #30 tab 02/26/22 Rx Butalb/APAP/Caff 50-325-40Mg 1 each PO Q4HR PRN #30 tab 02/26/22 Rx [Fioricet 50-325-40] Propranolol [Inderal] 20 mg PO BID #60 tab 02/26/22 Rx Allergies Allergy/AdvReac Type Severity Reaction Status Date / Time No Known Allergies Allergy Verified 02/25/22 22:08 Physical Examination - Vital Signs Vital Signs: Vital Signs Temp Pulse Pulse Resp BP BP Pulse Ox 02/26/22 08:32 98 F 73 16 96/60 98 02/26/22 06:32 58 L 16 101/61 98 02/25/22 23:22 62 16 111/68 98 02/25/22 19:12 98.0 F 68 16 107/70 98 Intake and Output 02/25/22 02/26/22 02/26/22 22:59 06:59 14:59 Other: # Voids 1 Weight 68.039 kg 68.039 kg Patient is a young female, in no acute distress. Patient is alert awake oriented to time place and person. Speech and language functions are normal. Patient can name and repeat very well. No aphasia or dysarthria. Attention, concentration and fund of knowledge is adequate. On cranial nerve examination, pupils are equal, round and reacting to light, vis ual noriega are full on confrontation, with no neglect on double simultaneous stimulation. Extraocular muscles are intact with no nystagmus. Face is symmetric, tongue protrudes to the midline. Palatal elevation and sensation normal, hearing and shoulder shrug normal, facial sensation normal. On muscle strength testing, there is no pronator drift and the strength is normal in arms and legs distally and proximally. Deep tendon reflexes are symmetric 1-1+ all over and plantars downgoing bilat erally with no clonus. Sensory to touch is slightly decreased in the left hand as compared to the right. No neglect on double simultaneous stimulation. Cerebellar function showed no ataxia for [id number] testing. No dysdiadochokinesia. No ataxia for [id number] testing on either side. Tone and bulk of muscles normal. Gait deferred.. On general examination, there is no carotid bruit or murmur, S1-S2 audible. Chest is clear on consultation. Abdomen is soft nontender. No organomegaly, bowel sounds present. Peripheral pulses are present. No edema. Results - Laboratory Findings CBC and BMP: 02/25/22 19:54 02/25/22 19:54 Assessment and Plan Assessment: * 21-year-old female with history of migraine with aura (aura always involving the left side of the body), came with unusual migraine, as involved the contralateral (right) side. * Long-standing history of migraine with aura, although unusual, as she has auras lasting for about 1-2 days, with headache resolving faster than the aura (in 24 hours). * ADD. Plan: * MRI of the brain was performed, which is normal. I personally reviewed MRI, I agree with the findings. * CTA of head and neck are normal. * Fasting lipid panel with cholesterol 123, LDL 67, HDL 44 and triglycerides 54. * Hemoglobin A1c 5.2 * Patient's migraines are unusual, as her aura lasts for about 1-2 days. I would suggest continuing aspirin 81 mg daily for stroke prevention. To prevent her migraines, I would suggest starting Inderal 20 mg twice a day. Patient does not have any asthma. She was recommended to decrease the dose to 1 a day, if she gets dizzy on standing up. She will take Fioricet as needed. If her migraine frequency persist, then she was recommended to follow up with a neurologist as an outpatient for management of migraines. * Suggest 2-D echo with bubble study to rule out PFO. If cannot be done over the weekend, can be performed as an outpatient. * Neurologically clear for discharge on aspirin 81 mg once daily, Inderal 20 mg twice a day and Fioricet as needed. Thank you for the consult.
--- NOTE | 2022-02-26 13:57 | P.DS ---
Providers Date of admission: 02/25/22 21:32 Expected date of discharge: 02/26/22 Attending physician: Mayuri Iglesias MD Consults: 02/25/22 21:32 Consult Physician Routine Consulting Provider: Jayson Last Consult Reason/Comments: Right sided numbness Do you want consulting provider notified?: Yes, Notify in am Primary care physician: Noemy Irwin Hospital Course: Discharge Diagnosis: Migraine with aura Right upper extremity numbness Possible TIA Hospital Course: 21-year-old with a history of migraine presented with sudden onset right upper extremity numbness and spasms. She has had prior neurological symptoms attributed to migraine aura, but those are mostly on her left side. Her symptoms on the right side is new for her. CT head and CTA neck was negative for any acute pathology. MRI brain was negative for any acute pathology. Vital signs and laboratory work was unremarkable. Neurology was consulted, recommended aspirin 81 mg daily for stroke prevention. Patient also started on Inderal 20 mg twice a day for migraine prophylaxis. She will also have Fioricet as needed for migraines. Outpatient echocardiogram and bubble study recommended. Patient seen and examined at bedside. Vital signs reviewed and stable. General: nontoxic, no distress, appears at stated age Derm: warm, dry Head: atraumatic, normocephalic, symmetric Eyes: EOMI, no lid lag, anicteric sclera Mouth: no lip lesion, mucus membranes moist Cardiovascular: S1S2 reg, no murmur Lungs: CTA bilateral, no rhonchi, no rales , no accessory muscle use Abdominal: soft, nontender to palpation, no guarding, no appreciable organomegaly Ext: no gross muscle atrophy, no edema, no contractures Neuro: CN II-XI grossly intact, no focal neuro deficits Psych: Alert, oriented, appropriate affect A total of 36 minutes of time were spent preparing this complex discharge summary. Patient was discharged on 02/26/22 at 13:52. Patient Condition at Discharge: Stable Plan - Discharge Summary Discharge Rx Participant: No New Discharge Prescriptions: New Butalb/APAP/Caff 50-325-40Mg [Fioricet 50-325-40] 1 each PO Q4HR PRN #30 tab PRN Reason: Headache Aspirin 81 mg PO DAILY #30 tab Propranolol [Inderal] 20 mg PO BID #60 tab Discontinued Ibuprofen [Motrin] 800 mg PO Q8H PRN PRN Reason: Pain Or Fever > 100.5 No Action Lisdexamfetamine Dimesylate [Vyvanse] 20 mg PO DAILY Discharge Medication List Lisdexamfetamine Dimesylate [Vyvanse] 20 mg PO DAILY 02/25/22 [History] Aspirin 81 mg PO DAILY #30 tab 02/26/22 [Rx] Butalb/APAP/Caff 50-325-40Mg [Fioricet 50-325-40] 1 each PO Q4HR PRN #30 tab 02/26/22 [Rx] Propranolol [Inderal] 20 mg PO BID #60 tab 02/26/22 [Rx] Follow up Appointment(s)/Referral(s): Noemy Irwin MD [Primary Care Provider] - 1-2 days Patient Instructions/Handouts: Migraine Headache (GEN) Activity/Diet/Wound Care/Special Instructions: Please see your PCP in 1-2 days. Please see a neurologist for further workup of recent neurological symptoms. Continue taking her medications as prescribed. If he was started to experience dizziness with Inderal, reduce dose to once daily. You may need an echocardiogram as an outpatient. Discharge Disposition: HOME SELF-CARE
== END 2022-02-26 14:57 | disposition home or self-care (01) ==
LOC: EC 18:30 → 6NMEDSUR 21:32
PROVIDERS: ADMIT Internal Medicine; ATTEND Internal Medicine
DX: G43.109 Migraine with aura, not intractable, without status migrainosus (principal); R20.0 Anesthesia of skin; H53.40 Unspecified visual field defects; F32.A Depression, unspecified; F41.9 Anxiety disorder, unspecified; F90.9 Attention-deficit hyperactivity disorder, unspecified type; Z79.82 Long term (current) use of aspirin; Z79.899 Other long term (current) drug therapy; Z84.89 Family history of other specified conditions
CPT/HCPCS: 99285; 36415; 93005; 80061; 80053; 83690; 83735; 84484; 85025; 81003; 81025; 83036; 71046; 70496; 70450; 70498; 70553; G0378 ×2; G0480; Q9967; A9585; 80320